=== PATIENT | male | born 1970 ===

== ENCOUNTER 2025-09-25 07:33 | Outpatient (AMB) | payer OTHER, SELFPAY ==
--- OUTSIDE RECORDS SUMMARY | 2025-09-25 07:35 | XMS_ITS | Clinical Summary ---
Author Organization [facility] [address] [facility] Address [address] [place] [address] Phone Care Team Providers Care Managed Care Provider Name Role Phone WhitAarti DO Primary Care Provider [phone] Social History Tobacco Use Types Packs/Day Years Used Date Smoking Tobacco: Never Assessed Sex and Gender Information Value Date Recorded Sex Assigned at Not on file Legal Sex Male 2:43 PM EDT Gender Identity Not on file Sexual Orientation Not on file Plan of Treatment Health Maintenance Due Date Last Done Comments Colorectal Cancer Screening: Colonoscopy 1972 IPV Vaccines (2 of 3 - Adult catch-up series) 05/09/1992 04/11/1992 Pneumococcal Vaccine: 50+ Years (2 of 2 - PCV) 01/06/2019 01/06/2018 RSV Immunization Adult Patients (1 - Risk 50-74 years 1-dose series) 01/12/2022 Zoster Vaccines (1 of 2) 01/12/2022 DTaP,Tdap,and Td Vaccines (3 - Td or Tdap) 07/08/2023 07/08/2013, 08/02/2009 Depression Screening 10/31/2024 Cholesterol Screening (Lipid Panel) 03/22/2025 HIV Screening 03/22/2025 Hepatitis C Screening 03/22/2025 Social Influencers of Health Screening 03/22/2025 Hypertension/CHF/CAD Annual BMP Blood Test 04/12/2025 COVID-19 Vaccine (2 - 2024- season) 2025 07/12/2021 Influenza Vaccine (#1) 2025 , 09/06/2020, 09/25/2019, Additional history exists MMR Vaccines Aged Out 04/11/1992 No longer eligi ble based on patient's age to complete this topic Meningococcal ACWY Vaccine Aged Out 11/23/2003 N o longer eligible based on patient's age to complete this topic Hepatitis A Vaccines Aged Out 07/08/2013, 03/14/19 99 No longer eligible based on patient's age to complete this topic Hepatitis B Vaccines Completed 01/06/2014, 07/08/2013, 09/15/2002 HIB Vaccines Aged Out No longer eligi ble based on patient's age to complete this topic HPV Vaccines Aged Out No longer eligi ble based on patient's age to complete this topic Meningococcal B Vaccine Aged Out No l onger eligible based on patient's age to complete this topic RSV Immunization Patients Under 20 months Aged Out No longer eligible based on patient's age to complete this topic Varicella Vaccines Aged Out No longer eligible based on patient's age to complete this topic Insurance Care Teams Managed Care Provider Relationship Specialty Start Date End Date Aarti Sherman DO [address] [place] [address] [address] [place] [address] PCP - General Internal Medicine 04/24/25
--- OUTSIDE RECORDS SUMMARY | 2025-09-25 07:35 | XMS_ITS | Data Portability ---
Author Organization [facility] [place] Address [address] [place] [address] Assessment No assessment recorded. Plan of Treatment Reminders Order Date Submit Date Provider Last Modified By Organization Details Last Modified Time Details Appointments None recorded. 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 Procedures None recorded. Surgeries None recorded. Imaging None recorded. Medication Orders None recorded. Patient TargetsNo targets recorded. Patient InstructionsNo instructions recorded. Reason for Referral None Reported. Results Created Date Observation Date Name Description Value Unit Range Abnormal Flag Note LastModifiedBy Organization Detail LastModifiedTime Result Notes None recorded. Medical Equipment None Reported. Allergies No known drug allergies Medications Name Sig Start Date Stop Date Status Note LastModified by Organization Details LastModified Time lisinopril 10 mg tablet Take 1 tablet every day by oral route. active Not Available Not Available No t Available albuterol active Not Available Not Cata ilable Not Available Singulair active Not Available Not Cata ilable Not Available Vitals Date Recorded Body temperature Oxygen saturation Heart rate Systolic And Diastolic Provider Name and Address Organization Details Last Updated DateTime 01/30/2020 97.8 [degF] 96 % 86 /min 128/98 mm[Hg] ELY Mandel [facility] 0 12:26:32 Social History None recorded. Functional Status None recorded. Mental Status None recorded. Family History Nothing Reported. Medical History No medical history recorded. Past Encounters Encounter ID Performer Location Encounter Start Date Encounter Closed Date Diagnosis/Indication Diagnosis SNOMED-CT Code Diagnosis ICD10 Code Diagnosis IMO Codes Diagnosis Note [id number] [facility] [address] [place] [address] 01/30/2020 11:52:56 01/30/2020 13:11:08 Exposure to SARS-CoV-2 769755067 Z20.828 Acute URI without complicati on, most consistent with viral etiology. Warrants testing as below for COVID-19 d/t combinatio n of symptoms and exposures. Advise rest, fluids, APAP/NSAID s prn, self-isola te, wear a mask if available, remain in home. Discussed signs/symp toms of respirator y distress. Contact PCP or this clinic if any new/worsen ing symptoms. If needs emergent care to notify EMS or ED or PCP office that they may have COVID to allow for proper PPE and isolation. Will advise further with test result. Pt states understand ing and comfort with plan. Health Concerns Section Related Observation LastModified by Organization Detai ls LastModified Time None Recorded Concern Status LastModified by Organization Details LastModified Time None Recorded Advance Directives Directive None Recorded Payers Insurance Date Sequence Insurance Name Policy Number Policy Barney Covered Member ID Barney Member ID Guarantor Name 01/30/2020 1 [facility] [facility] [place] [place] [id number] Yusuf Ocampo [id number] Notes Date Note Type Note Provider Name and Address Organization Details Recorded Time 01/30/2020 text/html ROS as noted in the HPI 50/M presents for COVID-19 testing. 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 - [facility] 02/01/2020 10:20:47
--- NOTE | 2025-09-25 07:38 | MHC.OFFVIS ---
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: No Allergies No Known Allergies Allergy (Verified 09/25/25 07:47) Medication List - Last Reconciled 09/25/25 by Padmini Vivas CNP albuterol sulfate 90 mcg/actuation (Ventolin HFA) 2 puffs inhalation Q6H PRN atorvastatin mg PO vlazuhdalg-imxqoammwcqds-zvyj 50-325-40 mg 1 tab PO BID PRN ferrous gluconate 225 mg PO DAILY fluticasone propion-salmeterol 500-50 mcg/dose (Wixela Inhub) inhalation galcanezumab-gnlm (Emgality Pen) 240 mg (2 mL) subcut ONCE ibuprofen mg PO lisinopril 20 mg PO DAILY loperamide mg PO mirtazapine 7.5 mg PO DAILY HPI Comments Details: Yusuf is a 55-year-old male patient with a past medical history of asthma, hypertension, hyperlipidemia, and migraine who follows in the clinic for headache. 3-4 times per week lasting 3hrs-2 days. His headaches are accompanied by irritability, light sensitivity, sound sensitivity, and difficulty concentrating. Occasionally he will experience nausea. He does have some spots and flashes in his vision during some of his headaches. His pain is generally retroorbital and frontal and most often on the left side but can also occur on the right side. His pain is describes as a dull throb. The verapamil that was prescribed at last visit he did not feel made any difference. He let the prescription ran out but did not refill it because it was ineffective. He has been using a combination of Tylenol and ibuprofen 3-4 times per week for abortive therapy which he does feel works ?eventually?. Headache characteristics: Time of onset: 25 years ago Location: Frontal and retro-orbital typically unilateral and often favors the left Radiation: None Positional component:No Character: Dull throb Severity: Moderate to severe Duration: 3 hours up to 2 days Frequency: 3-4 days per week Acute aggravating factors: Bright lights and loud noises Acute relieving factors: Rest and darkness Associated symptoms: Light and sound sensitivity, irritability, and occasionally nausea. He will sometimes describes spots and flashes in his vision but this is during and not leading up to his headaches. Aura:No Other related background information: Sleep: Reports that his sleep is terrible. He has mild PAULA and recently started using a cpap 3-4 months ago but has some difficulty tolerating the device. He is taking mirtazepine which was increased yesterday to 45mg nightly. 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 Does have history of clenching but the mirtazapine has been helpful to reduce this. History of head injury:None within the last 15 years and nothing major Past medication trials: Topiramate- No benefit Verapamil- No benefit Amitriptyline- Bad nightmares Prior workup: About 2 years ago had an MRI At [facility] which he remembers being told was normal [facility] Medical History (Updated 09/25/25 @ 08:40 by Padmini Vivas CNP) Asthma PAULA (obstructive sleep apnea) PTSD (post-traumatic stress disorder) Major depressive disorder Bilateral hearing loss HLD (hyperlipidemia) Hypertension Migraine Review of Systems Const All systems reviewed & are unremarkable except as noted in HPI and below Physical Exam Vital Signs: Last Vital Signs Pulse 76 09/25/25 07:45 Resp 16 09/25/25 07:45 BP 112/76 09/25/25 07:45 Pulse Ox 97 09/25/25 07:45 Oxygen Delivery Method Room Air 09/25/25 07:45 BMI result Body Mass Index 25.1 Const General: cooperative, healthy appearing, comfortable and no acute distress Nutritional Appearance: well nourished Orientation/consciousness: patient oriented x3 Limitations: no limitations HEENT Head: Yes normal to inspection and Yes normocephalic Eyes General: appearance normal, both eyes and all related structures Visual Sena: normal visual sena by confrontation Alignment and Position: alignment normal Periorbital: periorbital findings normal Eyelids: Yes eyelids normal Conjunctivae: conjunctivae normal Sclerae: sclerae normal Neck Neck: Yes normal visual inspection and Yes full ROM General: Yes no CVA tenderness Back/Spine/Pelvis Other: Bilateral trapezius tightening with some notable trigger points in the lower segments of the trapezius muscles bilaterally. No occipital notch tenderness. Back: no CVA tenderness Cervical Spine: normal cervical lordosis Thoracic/Lumbar Spine: thoracic and lumbar spine normal to inspection Neuro General: patient oriented x3 and tone normal Cranial nerves: Yes CN's II-XII intact bilaterally and Yes Facial sensation intact/muscles of mastication intact Cognition (Neuro): normal cognition Gait exam (Neuro): Normal gait present Motor exam (neuro): no tremor noted Sensory Exam: double simultaneous stimulation for sensation normal Romberg Test: Negative Pupils: Normal pupillary reactivity/response: bilateral Psych Appearance: grossly normal Mental Status: mental status grossly normal Speech and movement: Normal speech and movement present and Clear speech present Affect: normal affect Attitude: cooperative Thought process: Normal thought process present Thought content: Normal thought content present Insight: Good insight present (Psych) Judgement: Good judgement present (Psych) Assessment & Plan Assessment & Plan (1) Chronic migraine without aura without status migrainosus, not intractable: Code(s): G43.709 - Chronic migraine without aura, not intractable, without status migrainosus Category: Medical (2) PAULA (obstructive sleep apnea): Code(s): G47.33 - Obstructive sleep apnea (adult) (pediatric) Category: Medical Plan Yusuf is a 55-year-old male patient with a past medical history of asthma, hypertension, hyperlipidemia, and migraine who follows in the clinic for headache. He has been dealing with chronic migraine for at least 25 years and currently experiencing migraine headaches 3-4 days per week and they can last up to 2 days. They are greatly impacting his day-to-day life. He has tried several first-line agents without benefit and with the some side effects. He has been using a CPAP device and is taking mirtazapine for sleep. He can not use propranolol due to history of asthma. We discussed today utilizing once monthly anti CGRP injectable therapies. He would like to start. I will prescribe Emgality including the loading dose and maintenance dosing. I provided education to him today with demonstration pen. We will discuss acute/abortive therapy at time of next visit once he has started the Emgality. -start Emgality 240 mg loading dose and 120 mg monthly thereafter -follow up in 2 months at which time we will discuss acute therapy 45 minutes spent with the patient including time reviewing his prior office notes, history taking, exam, education on Emgality administration, and discussion of plan moving forward Medications: New galcanezumab-gnlm (Emgality Pen) 240 mg (2 mL) subcut ONCE 2 mL 0RF galcanezumab-gnlm (Emgality Pen) 120 mg subcut QMONTH 1 mL 4RF Coding Level of Care Code Est Pt Level 5 (60778) Diagnoses Chronic migraine without aura without status migrainosus, not intractable G43.709 PAULA (obstructive sleep apnea) G47.33
[2025-09-25 07:45] VITALS: BP 112/76; PULSE 76; RESP 16; O2SAT 97; BMI 25.1
== END 2025-09-25 08:34 | disposition home or self-care (01) ==
LOC: HO.HSM 07:33
PROVIDERS: PCP Internal Medicine; Visit Provider Nurse Practitioner
DX: G43.709 Chronic migraine without aura, not intractable, without status migrainosus (principal); G47.33 Obstructive sleep apnea (adult) (pediatric)
CPT/HCPCS: 99215

== ENCOUNTER → 2025-09-25 07:33 | Outpatient (BNVA) | payer OTHER, SELFPAY | PROVIDERS: PCP Internal Medicine; Visit Provider Nurse Practitioner | DX: G43.709 Chronic migraine without aura, not intractable, without status migrainosus (principal); G47.33 Obstructive sleep apnea (adult) (pediatric); Z99.89 Dependence on other enabling machines and devices; Z79.899 Other long term (current) drug therapy | CPT/HCPCS: 99212 ==